=== PATIENT | female | born 1960 | race Caucasian/White ===

== ENCOUNTER 2019-04-03 22:23 | Emergency (ER) | payer OTHER ==
[2019-04-03 22:49] VITALS: TEMP 97.3
[2019-04-03 23:09] VITALS: RESP 16
--- NOTE | 2019-04-03 23:47 | XR ---
INDICATION: Pain COMPARISON: None FINDINGS: AP, oblique, and lateral views of the left foot are obtained. Bony structures are intact. Bone mineralization is within normal limits. 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 The joint spaces are otherwise preserved. Soft tissues within normal limits. No radio-opaque foreign bodies. IMPRESSION: No acute fracture or subluxation identified.
[2019-04-03] MEDS ORDERED: ACET/COD 300 MG/30 MG STARTER PACK 6 TAB BTL PO STA (23:50)
--- NOTE | 2019-04-03 23:51 | ED ---
Lower Extremity Injury HPI - General Chief Complaint: Extremity Injury, Lower Stated Complaint: Foot injury Time Seen by Provider: 04/03/19 23:00 Source: patient, RN notes reviewed, old records reviewed Mode of arrival: wheelchair Limitations: no limitations - History of Present Illness Initial Comments: Patient is a 58-year-old female presenting today for evaluation for left foot pain. Patient reports that she was getting ready for her garage L, dropped a heavy waffle lamp on her dorsum of her foot. Patient states that she has bruising. She reports it happened earlier today which took her shoe off she noticed increased swelling and bruising and pain. Patient states that she's had no previous foot fractures. - Related Data Home Medications Medication Instructions Recorded Confirmed Ascorbic Acid [Vitamin C] 500 mg PO DAILY 04/03/19 04/03/19 Aspirin [Adult Low Dose Aspirin EC] 81 mg PO DAILY 04/03/19 04/03/19 Cholecalciferol (Vitamin D3) 2,000 unit PO DAILY 04/03/19 04/03/19 [Vitamin D3] Gabapentin [Neurontin] 300 mg PO BID 04/03/19 04/03/19 Meloxicam [Mobic] 15 mg PO DAILY PRN 04/03/19 04/03/19 Multivitamins, Thera [Multivitamin 1 tab PO DAILY 04/03/19 04/03/19 (formulary)] Omeprazole 40 mg PO DAILY 04/03/19 04/03/19 Sertraline [Zoloft] 100 mg PO DAILY 04/03/19 04/03/19 Call-Q 1 tab PO DAILY 04/03/19 04/03/19 Vitamin E 2,000 unit PO DAILY 04/03/19 04/03/19 Allergies Allergy/AdvReac Type Severity Reaction Status Date / Time naproxen [From Aleve] Allergy Rash/Hives Verified 04/03/19 23:14 Review of Systems ROS Statement: Those systems with pertinent positive or pertinent negative responses have been documented in the HPI. ROS Other: All systems not noted in ROS Statement are negative. Past Medical History Past Medical History: No Reported History Additional Past Medical History / Comment(s): lumbar stenosis, arthritis History of Any Multi-Drug Resistant Organisms: None Reported Past Surgical History: Orthopedic Surgery Past Psychological History: Anxiety, Depression Smoking Status: Current some day smoker Past Alcohol Use History: None Reported Past Drug Use History: Marijuana General Exam - General Exam Comments Initial Comments: Pleasant 58-year-old female. No distress. Limitations: no limitations General appearance: alert, in no apparent distress Head exam: Present: atraumatic, normocephalic, normal inspection Eye exam: Present: normal appearance, PERRL, EOMI. Absent: scleral icterus, conjunctival injection, periorbital swelling ENT exam: Present: normal exam, mucous membranes moist Neck exam: Present: normal inspection. Absent: tenderness, meningismus, lymphadenopathy Respiratory exam: Present: normal lung sounds bilaterally Cardiovascular Exam: Present: regular rate, normal rhythm, normal heart sounds. Absent: systolic murmur, diastolic murmur, rubs, gallop, clicks GI/Abdominal exam: Present: soft, normal bowel sounds. Absent: distended, tenderness, guarding, rebound, rigid Extremities exam: Present: normal inspection, full ROM, normal capillary refill. Absent: tenderness, pedal edema, joint swelling, calf tenderness Left Knee exam: Present: normal inspection, full ROM Lower Leg exam: Present: normal inspection, full ROM Ankle exam: Present: normal inspection, full ROM Foot/Toe exam: Present: tenderness (Chest tenderness over the dorsum of her foot through fifth and second metatarsal.), ecchymosis. Absent: normal inspection Neurovascular tendon exam: Present: no vascular compromise Back exam: Present: normal inspection Neurological exam: Present: alert, oriented X3, CN II-XII intact Psychiatric exam: Present: normal affect, normal mood Skin exam: Present: warm, dry, intact, normal color. Absent: rash Course Vital Signs 04/03/19 04/03/19 04/04/19 22:44 23:07 00:24 Temperature 97.3 F L Pulse Rate 88 54 L Respiratory 18 16 16 Rate Blood Pressure 122/65 123/78 O2 Sat by Pulse 98 96 Oximetry Medical Decision Making - Medical Decision Making This is a 58-year-old female presents to the Patient for left dorsum foot pain and swelling and bruising. Patient at this time has no fracture on exam. Patient's symptoms started after she dropped a heavy wobbly upon her foot. I discussed putting an Isac wrap and given the Patient a orthotic walking shoe. Patient has been advised to take Motrin Tylenol elevate her foot. Discussed or throat follow-up. - Radiology Data Radiology results: report reviewed Normal foot x-ray. Negative for acute process. Disposition Clinical Impression: Foot contusion Disposition: HOME SELF-CARE Condition: Good Instructions (If sedation given, give patient instructions): Foot Contusion (ED) Additional Instructions: Patient has a rest ice and elevate foot. Wear the Isac wrap and walking boot as directed. Return to the emergency department if any alarming signs or symptoms occur. Is patient prescribed a controlled substance at d/c from ED?: No Referrals: Nonstaff,Physician [Primary Care Provider] - 1-2 days Shlomo Jean MD [Medical Doctor] - 1-2 days Time of Disposition: 23:50
[2019-04-04 00:25] VITALS: BP 123/78; PULSE 54
== END 2019-04-04 00:27 | disposition home or self-care (01) ==
LOC: EC 22:23
DX: S90.32XA Contusion of left foot, initial encounter (principal); F17.200 Nicotine dependence, unspecified, uncomplicated; F32.9 Major depressive disorder, single episode, unspecified; F41.9 Anxiety disorder, unspecified; M19.90 Unspecified osteoarthritis, unspecified site; Z79.82 Long term (current) use of aspirin; Z79.899 Other long term (current) drug therapy; Z88.6 Allergy status to analgesic agent; Z98.890 Other specified postprocedural states; W20.8XXA Other cause of strike by thrown, projected or falling object, initial encounter; Y93.89 Activity, other specified; Y92.009 Unspecified place in unspecified non-institutional (private) residence as the place of occurrence of the external cause; Y99.0 Civilian activity done for income or pay
CPT/HCPCS: 99284